=== PATIENT | female | born 2000 | race Caucasian/White ===

== ENCOUNTER 2020-10-20 10:12 | Emergency (ER) | payer BC, SELFPAY ==
[~2020-10-20] VITALS: Ht 170.2 cm; Wt 59.0 kg
[2020-10-20 10:12] VITALS: BP_SYST 132
--- NOTE | 2020-10-20 10:25 | NUR ---
BROUGHT INTO OUTSIDE TRIAGE TENT, TRIAGE AND WILL ASSUME CARE
--- NOTE | 2020-10-20 10:31 | NUR ---
PT STATES HE FATHER TESTED POSITIVE AND SHE HAS A PENDING TEST AT THIS TIME. STATES SOB, NO ACUTE DISTRESS, SPEAKING FULL SENTENCES.
--- NOTE | 2020-10-20 10:55 | NUR ---
DR MOORE TO EVALUATE IN TRIAGE TENT
--- NOTE | 2020-10-20 11:45 | NUR ---
Patient given written and verbal discharge instructions and verbalizes understanding. ER MD discussed with patient the results and treatment provided. Patient in stable condition. ID arm band removed. Rx of NONE given. Patient educated on pain management and to follow up with PMD. Pain Scale 0/10. Opportunity for questions provided and answered. Medication side effect fact sheet provided.
== END 2020-10-20 11:44 | disposition home or self-care (01) ==
LOC: SED 10:12
DX: R50.9 Fever, unspecified (principal); M79.18 Myalgia, other site; R05 Cough; R63.0 Anorexia
CPT/HCPCS: 99281

== ENCOUNTER 2022-09-20 22:11 | Emergency (ER) | payer BC ==
--- NOTE | 2022-09-20 22:25 | NUR ---
CALL PT NAME IN THE WAITING ROOM TO BE TRIAGE.NO RESPONSE.
--- NOTE | 2022-09-20 22:30 | NUR ---
CALL PT NAME IN THE WAITING ROOM TO BE TRIAGE.NO RESPONSE.
--- NOTE | 2022-09-20 22:40 | NUR ---
CALL PT NAME IN THE WAITING ROOM TO BE TRIAGE.NO RESPONSE.
== END 2022-09-20 22:40 | disposition left against medical advice (07) ==
LOC: SED 22:11
DX: R05.9 Cough, unspecified (principal); R50.9 Fever, unspecified; R51.9 Headache, unspecified; Z53.21 Procedure and treatment not carried out due to patient leaving prior to being seen by health care provider